=== PATIENT | male | born 1965 | race Caucasian/White ===

== ENCOUNTER → 2020-08-08 | Outpatient (CLI) | payer OTHER ==
[~2020-08-08] MED LIST: ADVAIR HFA 230/1 INH INH; DULERA 200 MCG8.8 GM INH; FEXOFENADINE H180 MG PO; LEXAPRO10 MG PO; PANTOPRAZOLE SO40 MG PO; PREDNISONE 10 M10 MG PO; PROVENTIL HFA 61 INH INH; SINEQUAN CAP 1010 MG PO; VENTOLIN HFA 66.7 GM INH
== END ==
LOC: HEART 5 14:48
DX: J44.9 Chronic obstructive pulmonary disease, unspecified (principal); R94.2 Abnormal results of pulmonary function studies; Z87.891 Personal history of nicotine dependence
CPT/HCPCS: 94010; 94729